=== PATIENT | female | born 1985 | race Caucasian/White ===

== ENCOUNTER 2017-03-28 18:30 | Emergency (ER) | payer SELFPAY ==
[2017-03-28 18:38] VITALS: RESP 16; TEMP 97.7; O2SAT 97
[2017-03-28 18:49] VITALS: BP 135/90
[2017-03-28] MEDS ORDERED: CYCLOBENZAPRINE 10MG PREPACK#3 BTL TAKEHOME ONE (19:26)
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
== END 2017-03-28 19:43 | disposition home or self-care (01) ==
DX: S09.90XA Unspecified injury of head, initial encounter (principal); F17.200 Nicotine dependence, unspecified, uncomplicated; Y04.0XXA Assault by unarmed brawl or fight, initial encounter